=== PATIENT | male | born 1945 | race Caucasian/White ===

== ENCOUNTER 2017-11-10 13:19 | Outpatient (CLI) | payer MEDICARE, OTHER ==
[2016-11-03 11:12] VITALS: BP 167/91
== END 2017-11-10 13:25 ==
LOC: CARD 13:19
PROVIDERS: ATTEND Internal Medicine Cardiovascular Disease
DX: Z86.79 Personal history of other diseases of the circulatory system (principal); E78.5 Hyperlipidemia, unspecified; G47.30 Sleep apnea, unspecified
CPT/HCPCS: G0463

== ENCOUNTER 2018-04-05 11:27 | Outpatient (CLI) | payer OTHER ==
[2016-11-03 11:12] VITALS: BP 167/91
--- NOTE | 2018-04-05 18:02 | Diagnostic Imaging Report ---
SHANIQUA CARBAJAL (TRESSA) - OP [facility] [address] [facility] [address] [place], [place]. [address] Report Submission Date: April 05, 2018 12:47:39 PM CDT Patient Study Name: ESTELLE VALDEZ Date: April 05, 2018 11:49:31 AM CDT Modality Type: DX Gender: M Description: CHEST : 45 Institution: [facility] Physician: SHANIQUA CARBAJAL (TRESSA) - OP Examination: PA and lateral chest. History: Evaluate lung pryor. PT C/O SOA X 1 DAY. PT STATES HE TAKES MEDICATION FOR HYPERTENSION. FORMER SMOKER. QUIT SMOKING IN 1978. (Hx) Comparison exam: None provided. Findings: PA lateral chest demonstrate a normal cardiac and mediastinal silhouette. Mildly tortuous aorta. No focal infiltrate. No blunting of the costophrenic margins. Osseous structures are appropriate for age. Impression: No acute pulmonary process. Electronically signed on April 05, 2018 12:47:39 PM CDT by: Elliott RAVI
== END 2018-04-05 11:30 ==
LOC: RT 11:27
PROVIDERS: ATTEND Nurse Practitioner Family
DX: I48.91 Unspecified atrial fibrillation (principal); R06.02 Shortness of breath; R53.1 Weakness
CPT/HCPCS: 71046